=== PATIENT | male | born 1980 | race Caucasian/White ===

== ENCOUNTER 2022-09-08 01:40 | Emergency (ER) | payer MEDICAID ==
[~2022-09-08] VITALS: Ht 195.6 cm; Wt 95.3 kg
[2022-09-08] MEDS ORDERED: PSEU120T57 PO (02:13)
--- NOTE | 2022-09-08 02:15 | NUR ---
SIDE LASTER TACK AT BEDSIDE
[2022-09-08 03:15] VITALS: BP 121/78
== END 2022-09-08 03:16 | disposition home or self-care (01) ==
LOC: ER 01:46
DX: B34.9 Viral infection, unspecified (principal); J32.9 Chronic sinusitis, unspecified; Z79.899 Other long term (current) drug therapy
CPT/HCPCS: 71045-TC